=== PATIENT | female | born 1995 | race African-American/Black ===

== ENCOUNTER 2019-09-24 12:59 | Emergency (ER) | payer OTHER, MEDICAID ==
[~2019-09-24] VITALS: Ht 157.5 cm; Wt 70.8 kg
[2019-09-24 17:35] VITALS: BP 112/70
== END 2019-09-24 17:35 | disposition short-term general hospital (02) ==
LOC: M.ERS 12:59
DX: S02.69XA Fracture of mandible of other specified site, initial encounter for closed fracture (principal); S01.512A Laceration without foreign body of oral cavity, initial encounter; S16.1XXA Strain of muscle, fascia and tendon at neck level, initial encounter; S40.022A Contusion of left upper arm, initial encounter; Y08.89XA Assault by other specified means, initial encounter; Y93.89 Activity, other specified; Y92.89 Other specified places as the place of occurrence of the external cause; Y99.8 Other external cause status